=== PATIENT | female | born 1940 | race Caucasian/White ===

== ENCOUNTER 2018-02-22 03:57 | Observation (INO) | payer BC ==
[~2018-02-22 03:57] MED LIST: GABA300C5 PO; INSU100V2 SQ; INSU1INJ18 SQ; LEVO.05 PO; LOSA50TA2 PO; LOVA40TA PO; MEMA1TAB PO; PERC5TAB12 PO
[2018-02-22] MEDS ORDERED: [UNRECOGNIZED DRUG - REMARK] SQ (04:35)
[2018-02-22 08:19] VITALS: BP 137/58; PULSE 58; RESP 18; TEMP 97.8; O2SAT 97
[2018-02-22] MEDS ORDERED: INSU1INJ18 SQ (08:38)
[2018-02-22 09:15] VITALS: PULSE 56
[2018-02-22] MEDS ORDERED: RIVA9.5T T-DERMAL (09:53)
[2018-02-22] MEDS ORDERED: SODIUM CHLORIDE 0.9% FLUSH 10 ML FLUSH IV FLUSH PRN (10:00)
[2018-02-22] MEDS ORDERED: NITROGLYCERIN 0.4 MG SL 25 TABS/BTL SL PRN (10:00)
[2018-02-22] MEDS ORDERED: ONDANSETRON ODT 4 MG TAB PO PRN (10:00)
[2018-02-22] MEDS ORDERED: ACETAMINOPHEN/HYDROcodone 325 MG/7.5 MG TAB PO PRN (10:00)
[2018-02-22] MEDS ORDERED: ACETAMINOPHEN 500 MG CPLT PO PRN (10:00)
[2018-02-22] MEDS ORDERED: MORPHINE SULFATE 4 MG/ML INJ IV PUSH PRN (10:00)
[2018-02-22] MEDS ORDERED: NS + KCL 20 MEQ INJ 1,000 ML IV SCH (10:15)
--- NOTE | 2018-02-22 10:25 | HHI.HP ---
[facility] Non-Staff Admission Diagnosis Chest pain Diagnoses: (1) Chest pain (2) Acute kidney injury (3) Diabetes mellitus (4) Hypertension (5) Anxiety (6) Dementia Chief Complaint: Chest pain Travel History International Travel<30 Days: No Contact w/Intl Traveler <30 Da: No Traveled to Known Affected Are: No History of Present Illness The patient is a 77-year-old female transferred from [place] for further evaluation of chest pain. The patient initially presented to the emergency department with complaint of chest tightness and pressure in the left side of her chest. It has resolved after 20-30 minutes. The patient denies associated diaphoresis or dyspnea. Denies nausea or vomiting. No chest pain currently. Review of Systems Constitutional: DENIES: Fever, Chills, Night Sweats Eyes: DENIES: Blurred vision, Vision loss Ears, nose, mouth, throat: DENIES: Hearing loss Respiratory: DENIES: Cough, Wheezing, Sputum production, Shortness of breath Cardiovascular: COMPLAINS OF: Chest pain, DENIES: Palpitations, Dyspnea on Exertion, Lower Extremity Edema Gastrointestinal: COMPLAINS OF: Abdominal pain, DENIES: Constipation, Diarrhea , Nausea, Vomiting Genitourinary: DENIES: Urinary frequency, Urinary incontinence, Urgency, Hematuria, Dysuria, Nocturia Musculoskeletal: DENIES: Joint pain, Muscle aches Integumentary: DENIES: Pruritus, Rash Hematologic/lymphatic: DENIES: Bruising Neurologic: DENIES: Headache Past Family Social History Past Medical History Dementia History of colon cancer Hypertension Hyperlipidemia Insulin-dependent diabetes mellitus Hypothyroidism Past Surgical History Partial colon resection section 3 Reported Medications [Long Lasting Insulin] 40 Units SQ BID Humulin R Inj (Insulin Human Regular) 1,000 Unit/10 Ml Vial 2-10 Units SQ TIDAC PRN IMPORTANT TO EAT A MEAL WITHIN 30-60 MINUTES OF DOSING Losartan-Hydrochlorothiazide 50-12.5 Mg Tab 1 Tab PO DAILY Lovastatin 40 Mg Tab 40 Mg PO DAILY Synthroid (Levothyroxine Sodium) 50 Mcg Tab 50 Mcg PO DAILY Allergies: Coded Allergies: Sulfa (Sulfonamide Antibiotics) (Verified Allergy, Unknown, 02/22/18) amoxicillin (Verified Allergy, Unknown, 02/22/18) Family History Father at age 72 of a myocardial infarction Social History Denies alcohol, tobacco, or illicit drug use. Physical Exam Vital Signs Vital Signs Date Time Temp Pulse Resp B/P (MAP) Pulse Ox O2 Delivery O2 Flow Rate FiO2 02/22/18 08:19 97.8 58 18 137/58 (84) 97 Physical Exam GENERAL: Well-nourished, well-developed female in no acute distress. HEENT: Normocephalic, atraumatic. Pupils equal, round and reactive. Extraocular movements intact. No scleral icterus. No injection or drainage. Oropharynx is clear. Mucous membranes are moist. CARDIOVASCULAR: Regular rate and rhythm without murmurs, gallops, or rubs. No chest wall tenderness. RESPIRATORY: Clear to auscultation. No wheezes, rales, or rhonchi. Breathing is non-labored. GASTROINTESTINAL: Abdomen soft, mildly tender in the midepigastric region, nondistended. EXTREMITIES: No lower extremity edema. No calf tenderness. PSYCH: Alert and oriented x 3. Caprini VTE Risk Assessment Caprini VTE Risk Assessment: Mod/High Risk (score >= 2) Caprini Risk Assessment Model Point Value = 1 Point Value = 2 Point Value = 3 Point Value = 5 Age 41-60 Minor surgery BMI > 25 kg/m2 Swollen legs Varicose veins or History of unexplained or recurrent spontaneous Oral contraceptives or hormone replacement Sepsis (< 1 month) Serious lung disease, including pneumonia (< 1 month) Abnormal pulmonary function Acute myocardial infarction Congestive heart failure (< 1 month) History of inflammatory bowel disease Medical patient at bed rest Age 61-74 Arthroscopic surgery Major open surgery (> 45 min) Laparoscopic surgery (> 45 min) Malignancy Confined to bed (> 72 hours) Immobilizing plaster cast Central venous access Age >= 75 History of VTE Family history of VTE Factor V Leiden Prothrombin [id number] Lupus anticoagulant Anticardiolipin antibodies Elevated serum homocysteine Heparin-induced thrombocytopenia Other congenital or acquired thrombophilia Stroke (< 1 month) Elective arthroplasty Hip, pelvis, or leg fracture Acute spinal cord injury (< 1 month) Prophylaxis Regimen Total Risk Factor Score Risk Level Prophylaxis Regimen 0-1 Low Early ambulation 2 Moderate Order ONE of the following: *Sequential Compression Device (SCD) *Heparin 5000 units SQ BID 3-4 Higher Order ONE of the following medications: *Heparin 5000 units SQ TID *Enoxaparin/Lovenox 40 mg SQ daily (WT < 150 kg, CrCl > 30 mL/min) *Enoxaparin/Lovenox 30 mg SQ daily (WT < 150 kg, CrCl > 10-29 mL/min) *Enoxaparin/Lovenox 30 mg SQ BID (WT < 150 kg, CrCl > 30 mL/min) AND/OR *Sequential Compression Device (SCD) 5 or more Highest Order ONE of the following medications: *Heparin 5000 units SQ TID (Preferred with Epidurals) *Enoxaparin/Lovenox 40 mg SQ daily (WT < 150 kg, CrCl > 30 mL/min) *Enoxaparin/Lovenox 30 mg SQ daily (WT < 150 kg, CrCl > 10-29 mL/min) *Enoxaparin/Lovenox 30 mg SQ BID (WT < 150 kg, CrCl > 30 mL/min) AND *Sequential Compression Device (SCD) Assessment and Plan Assessment and Plan 1. Chest pain: First 2 sets of cardiac enzymes are negative. Will check a third set of troponin and CK. If negative, plan for nuclear stress test this afternoon. Patient currently is chest pain-free. Nitroglycerin as needed. 2. Insulin-dependent diabetes mellitus: Monitor Accu-Cheks and cover with sliding scale insulin. Patient is n.p.o. for probable stress test. Resume basal insulin when diet is resumed. 3. Hypertension: Continue losartan, HCTZ. 4. Hyperlipidemia: Continue statin. 5. Hypothyroidism: Continue Synthroid. 6. Acute kidney injury: IV fluids. 7. DVT prophylaxis: SCDs, BALDOMERO parson. If serial cardiac enzymes are negative, will proceed to nuclear stress test. If the stress test is negative, plan for discharge home later today. Jordan Zamudio MD Feb 22, 2018 10:25
[2018-02-22] MEDS ORDERED: DEXTROSE 50% IN WATER 50 ML VIAL(D50) IV PUSH PRN (10:30)
[2018-02-22] MEDS ORDERED: GLUCAGON 1 MG/ML VIAL OTHER PRN (10:30)
[2018-02-22 11:46] LABS: TROPONIN I LESS THAN 0.02 NG/ML (0.02-0.05)
[2018-02-22] MEDS ORDERED: INSULIN ASPART SUPPLEMENTAL SCALE SQ SCH (12:00)
[2018-02-22] MEDS ORDERED: REGADENOSON INJ 0.4 MG/5 ML SYR ONE (12:12)
--- NOTE | 2018-02-22 13:03 | RADRPT ---
EXAM DATE: 02/22/2018 12:57 PM EDT AGE/SEX: 77 years / Female INDICATIONS:Angina. . Substernal chest pain. CLINICAL DATA: This is the patient's initial encounter. Patient reports that signs and symptoms have been present for 1 day and indicates a pain score of 4/10. MEDICAL/SURGICAL HISTORY: Diabetes mellitus type II. Hypertension. Carcinoma, colon. Colon re section. section. COMPARISON: No prior [facility] exams available for comparison. DOSE: 8.5 mCi Tc 99m Myoview at rest 25.4 mCi Ib86b-Iudutel at stress 0.4 mg Lexiscan STRESS SYMPTOMS: Dyspnea. EJECTION FRACTION: 68 % TECHNIQUE: The patient underwent pharmacologic stress with infusion of prescribed dose. Continuous ECG tracing was monitored during stress. Gated SPECT imaging was performed after stress and conventi onal SPECT imaging was performed at rest. The examination was performed on a SPECT/CT scanner, both attenuation and non-corrected datasets were reviewed. FINDINGS: Distribution: The maximum perfused segment at stress is in the anterior wall. Perfusion Study: The pattern of perfusion at stress is within normal limits. Gated Study: Mild to moderate hypokinesia in the inferolateral wall. The ejection fraction is calcu lated at 68%. RISK CATEGORY: Low to intermediate CONCLUSION: 1. No stress-induced ischemia. 2. 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 Overall left ventricular ejection fra ction remains within normal limits. Electronically signed by: Zac Alvarez MD 02/22/2018 1:02 PM EDT
--- NOTE | 2018-02-22 13:43 | HHI.DCPOC ---
Discharge Care Plan Diagnosis: (1) Dehydration (2) Chest pain Goals to Promote Your Health * To prevent worsening of your condition and complications * To maintain your health at the optimal level Directions to Meet Your Goals Take your medications as prescribed Follow your dietary instruction Follow activity as directed Keep your appointments as scheduled Take your immunizations and boosters as scheduled If your symptoms worsen call your PCP, if no PCP go to Urgent Care Center or Emergency Room Smoking is Dangerous to Your Health. Avoid second hand smoke Call the 24-hour hour crisis hotline for domestic abuse at Yadira Menard PA-C Feb 22, 2018 13:43
[2018-02-22] MEDS ORDERED: ASPI-147 PO (14:35)
[2018-02-22 14:40] LABS: BICARBONATE 25.2 MEQ/L (21.0-32.0); CREATININE 1.42 MG/DL (0.50-1.00)
[2018-02-22] MEDS ORDERED: AMLO10 PO (14:51)
[2018-02-22] MEDS ORDERED: SODIUM CHLORIDE 0.9% FLUSH 10 ML FLUSH IV FLUSH SCH (21:00)
[2018-02-23] MEDS ORDERED: PNEUMOCOCCAL POLYVALENT INJ 25 MCG/0.5 ML SYR IM ONE (10:00)
--- NOTE | 2018-02-23 17:07 | EKG ---
Date Performed: 02/22/2018 Time Performed: 10:24:17 PTAGE: 77 years EKG: SINUS BRADYCARDIA RIGHT BUNDLE BRANCH BLOCK LEFT ANTERIOR FASCICULAR BLOCK Compared to prev ious tracing, QRS voltage slightly decreased in aVL, otherwise no significant change ABNORMAL ECG PREVIOUS TRACING : 02/22/2018 07.16 DOCTOR: José Miguel De Luna Interpretating Date/Time 02/23/2018 17:06:55
== END 2018-02-22 16:06 | disposition home or self-care (01) ==
LOC: NEDDLT 03:57 → UNDOADMOB 08:00 → NEPFCDU 08:00 → UNDODISOB 16:06
PROVIDERS: ADMIT Family Medicine; ATTEND Family Medicine
DX: R07.89 Other chest pain (principal); I45.2 Bifascicular block; E86.0 Dehydration; R00.1 Bradycardia, unspecified; I10 Essential (primary) hypertension; E11.9 Type 2 diabetes mellitus without complications; E78.5 Hyperlipidemia, unspecified; E03.9 Hypothyroidism, unspecified; N17.9 Acute kidney failure, unspecified; F03.90 Unspecified dementia, unspecified severity, without behavioral disturbance, psychotic disturbance, mood disturbance, and anxiety; F41.9 Anxiety disorder, unspecified; Z79.4 Long term (current) use of insulin; Z85.038 Personal history of other malignant neoplasm of large intestine; Z79.899 Other long term (current) drug therapy
CPT/HCPCS: 71046; 78452; 80048; 82550; 82552; 82948; 84484; 85025; 93005; 93017; 96365; 99285; A9502; G0378; J2785; J3480